=== PATIENT | female | born 1995 | race Caucasian/White ===

== ENCOUNTER 2016-07-11 21:21 | Emergency (ER) | payer OTHER ==
[2016-07-11 21:36] VITALS: BMI 27.1
--- NOTE | 2016-07-11 23:21 | PDOC ---
History of Present Illness - General Chief Complaint: Bleeding from Anus Stated Complaint: BLOOD IN STOOL Time Seen by Provider: 07/11/16 22:49 History Source: Patient Exam Limitations: No Limitations - History of Present Illness Travel History: No Initial Comments: 07/12/16 02:44 21yo Female patient presents to ED c/o lower abd pain with bloody stools. Patient states symptoms began 3pm today. She reports 3 soft loose stools with blood. LNMP: Jun 29. She denies any other complaints at this time. Timing/Duration: reports: getting worse Quality: reports: moderate Abdominal Pain Onset Location: reports: RLQ, LLQ, periumbilical Pain Radiation: reports: no radiation Activities at Onset: reports: none Treatment Prior to Arrive: worse with: analgesics, antacids, cold pack, heat, laxative, enema, other Aggravating Factors: improves with: Defecation Alleviating Factors: worse with: None, Belching, Shallow Breathing, Defecation, Eating, Holding Breath, Passing Gas, Change in Position, Rest, Voiding, Vomiting Past History - Travel Traveled outside of the country in the last 30 days: No Close contact w/someone who was outside of country & ill: No - Past Medical History Allergies/Adverse Reactions: Allergies Allergy/AdvReac Type Severity Reaction Status Date / Time No Known Allergies Allergy Verified 07/11/16 21:32 Home Medications: Ambulatory Orders Docusate Sodium [Colace -] 100 mg PO BID #28 capsule 07/12/16 Famotidine [Pepcid] 40 mg PO DAILY #20 tablet 07/12/16 Oxycodone HCl/Acetaminophen [Percocet 5-325 mg Tablet] 1 tab PO Q6H PRN #12 tablet MDD 4 tab daily 07/12/16 Asthma: Yes (last attack 3-4 years ago) Cancer: No Cardiac Disorders: No Diabetes: No HTN: No Seizures: No Thyroid Disease: No - Immunization History Immunization Up to Date: Yes - Psycho/Social/Smoking Cessation Hx Anxiety: No Suicidal Ideation: No Smoking History: Never smoked Have you smoked in the past 12 months: No Number of Cigarettes Smoked Daily: 0 Information on smoking cessation initiated: No Hx Alcohol Use: No Drug/Substance Use Hx: No Substance Use Type: None Hx Substance Use Treatment: No Abd/GI Specific PMHX - Complaint Specific PMHX Colitis: No Diverticulitis: No Gall Bladder Disease: No GERD: No Hepatitis: No Irritable Bowel Synd (IBS): No Pancreatitis: No GI Ulcer Disease: No Review of Systems - Review of Systems Able to Perform ROS?: Yes Is the patient limited Turkmen proficient: Yes Constitutional: No: Chills, Fever Respiratory: No: Cough, Shortness of Breath Cardiac (ROS): No: Chest Pain ABD/GI: Yes: Rectal Bleeding, Other (Lower abd pain). No: Constipated, Diarrhea , Nausea, Vomiting : No: Burning, Dysuria Musculoskeletal: No: Back Pain Integumentary: No: Rash All Other Systems: Reviewed and Negative *Physical Exam - Vital Signs Last Vital Signs Temp Pulse Resp BP Pulse Ox 98.0 F 69 14 110/56 100 07/11/16 21:33 07/11/16 21:33 07/11/16 21:33 07/11/16 21:33 07/11/16 21:33 - Physical Exam General Appearance: Yes: Nourished, Appropriately Dressed, Mild Distress. No: Apparent Distress Neck: positive: Trachea midline, Supple Respiratory/Chest: positive: Lungs Clear, Normal Breath Sounds Cardiovascular: positive: Regular Rhythm, Regular Rate Gastrointestinal/Abdominal: positive: Tender (+ tenderness to periumbilical and lower abd region.), Soft, Decreased BS Rectal Exam: positive: normal rectal tone, hemorrhoids, other (Heme positive stool) Musculoskeletal: positive: Normal Inspection Extremity: positive: Normal Capillary Refill, Normal Inspection, Normal Range of Motion Integumentary: positive: Normal Color, Dry, Warm Neurologic: positive: control electrician II-XII NML intact, Fully Oriented, Alert, Normal Mood/ Affect, Normal Response, Motor Strength / ED Treatment Course - LABORATORY CBC & Chemistry Diagram: 07/11/16 23:50 07/11/16 23:50 *DC/Admit/Observation/Transfer Diagnosis at time of Disposition: External bleeding hemorrhoids - Discharge Dispostion Disposition: HOME Condition at time of disposition: Stable Admit: No - Prescriptions Prescriptions: Docusate Sodium [Colace -] 100 mg PO BID #28 capsule Famotidine [Pepcid] 40 mg PO DAILY #20 tablet Oxycodone HCl/Acetaminophen [Percocet 5-325 mg Tablet] 1 tab PO Q6H PRN #12 tablet MDD 4 tab daily PRN Reason: Severe Pain - Referrals Referrals: Akua Resendez NP [Primary Care Provider] - Gopal Sierra MD [Staff Physician] - - Patient Instructions Printed Discharge Instructions: Hemorrhoids Additional Instructions: FOLLOW UP WITH DR. SIERRA (GASTROENTEROLOGY) REGARDING TODAYS VISIT. TAKE MEDICATION PRESCRIBED. DO NOT DRIVE, DRINK ALCOHOL, OR OPERATE HEAVY MACHINERY WHILE TAKING PERCOCET. CALL TO SCHEDULE YOUR APPOINTMENT. ALSO, FOLLOW UP WITH YOUR PRIMARY CARE DOCTOR WELL. Print Language: DIVEHI
[2016-07-12 00:18] LABS: BASOPHIL 0.4 % (0-2.0); EOSINOPHIL 5.8 % (0-4.5); MCH 27.1 pg (25.7-33.7); MCHC 32.2 g/dl (32.0-36.0); MEAN CELL VOLUME 84.3 fl (80-96); MEAN PLT VOLUME 9.3 fl (7.5-11.1); NEUTROPHILS 46.2 % (42.8-82.8); PLATELET COUNT 268 K/MM3 (134-434); RDW 13.8 % (11.6-15.6); WHITE BLOOD COUNT 6.9 K/mm3 (4.0-10.0)
[2016-07-12 00:40] LABS: ALBUMIN 3.8 g/dl (3.4-5.0); AMYLASE 74 U/L (25-115); ANION GAP 7 (8-16); BILIRUBIN,TOTAL 0.2 mg/dL (0.2-1.0); CALCIUM 8.9 mg/dL (8.5-10.1); CO2 29 mmol/L (21-32); CREATININE 0.8 mg/dL (0.55-1.02); GLUCOSE,RANDOM 99 mg/dL (74-106); SGOT/AST 21 U/L (15-37); SGPT/ALT 51 U/L (12-78)
[2016-07-12 00:41] LABS: ALK PHOS 125 U/L (45-117)
[2016-07-12] MEDS ORDERED: SODIUM CHLORIDE 1,000 ML IV STA (01:10)
--- NOTE | 2016-07-12 01:22 | PDOC ---
[id number] 100 07/11/16 21:33 07/11/16 21:33 07/11/16 21:33 07/11/16 21:33 07/11/16 21:33 ED Treatment Course - LABORATORY CBC & Chemistry Diagram: 07/11/16 23:50 07/11/16 23:50 - ADDITIONAL ORDERS Additional order review: Laboratory Results 07/12/16 07/11/16 00:25 23:50 Sodium 140 Potassium 4.5 Chloride 104 Carbon Dioxide 29 D Anion Gap 7 L BUN 16 D Creatinine 0.8 Creat Clearance w eGFR > 60 Random Glucose 99 Calcium 8.9 Total Bilirubin 0.2 D AST 21 ALT 51 D Alkaline Phosphatase 125 H Total Protein 8.0 Albumin 3.8 Total Amylase 74 Lipase 235 Stool Occult Blood Positive 07/11/16 23:50 RBC 4.46 MCV 84.3 MCHC 32.2 RDW 13.8 MPV 9.3 Neutrophils % 46.2 Lymphocytes % 34.2 D Monocytes % 13.4 H Eosinophils % 5.8 H Basophils % 0.4 Medical Decision Making - Medical Decision Making 07/12/16 01:21 agree with care from POLICE ACADEMY PROGRAM COORDINATOR [place] *DC/Admit/Observation/Transfer Diagnosis at time of Disposition: External bleeding hemorrhoids - Discharge Dispostion Disposition: HOME - Prescriptions Prescriptions: Docusate Sodium [Colace -] 100 mg PO BID #28 capsule Famotidine [Pepcid] 40 mg PO DAILY #20 tablet Oxycodone HCl/Acetaminophen [Percocet 5-325 mg Tablet] 1 tab PO Q6H PRN #12 tablet MDD 4 tab daily PRN Reason: Severe Pain - Referrals Referrals: Akua Resendez NP [Primary Care Provider] - Gopal Sierra MD [Staff Physician] - - Patient Instructions Printed Discharge Instructions: Hemorrhoids Additional Instructions: FOLLOW UP WITH DR. SIERRA (GASTROENTEROLOGY) REGARDING TODAYS VISIT. TAKE MEDICATION PRESCRIBED. DO NOT DRIVE, DRINK ALCOHOL, OR OPERATE HEAVY MACHINERY WHILE TAKING PERCOCET. CALL TO SCHEDULE YOUR APPOINTMENT. ALSO, FOLLOW UP WITH YOUR PRIMARY CARE DOCTOR WELL. Print Language: PERSIAN
[2016-07-12 07:26] VITALS: BP 105/55; PULSE 66; TEMP 98.1
== END 2016-07-12 07:27 | disposition home or self-care (01) ==
LOC: JER 21:21
PROC: 3E0337Z Introduction of Electrolytic and Water Balance Substance into Peripheral Vein, Percutaneous Approach (ICD-10-PCS; principal; 2016-07-11)
DX: K64.4 Residual hemorrhoidal skin tags (principal); J45.909 Unspecified asthma, uncomplicated
CPT/HCPCS: 36415; 74177-TC; 80053; 82150; 82272; 83690; 84703; 85025; 99281-25

== ENCOUNTER 2020-04-20 21:19 | Emergency (ER) | payer OTHER ==
--- NOTE | 2020-04-20 21:27 | PDOC ---
History of Present Illness - General Stated Complaint: 34 WEEKS/PASSED OUT TWICE Time Seen by Provider: 04/20/20 21:26 History Source: Patient Exam Limitations: No Limitations - History of Present Illness Initial Comments: 04/20/20 21:27 24F , at 35 weeks, previous complicated by preeclampsia presents to ED via EMS after syncopal episode today that occurred at her brothers , where she began to stumble, and was caught by people around her, did not fall and hit her head. She does not recall the event. Her , at bedside, witnessed the event and denied convulsions/jerking motions. She does report some abdominal pressure. She denies DIAZ, vision changes, numbness/tingling/weakness, CP, SOB, nausea, vomiting, dysuria, or LE edema. Allergies: NKDA Tob/Etoh/Rec drugs: neg x3 OBGYN: Dr. Lopez ROS: HEENT: No change in vision. CARDIOVASCULAR: No chest pain or shortness of breath RESPIRATORY: No cough, wheezing, or hemoptysis. GASTROINTESTINAL: No nausea, vomiting, diarrhea or constipation. GENITOURINARY: No dysuria, frequency, or change in urination. NEUROLOGIC: No headache, vertigo, loss of consciousness, or change in strength/sensation. PE: GENERAL: AOx3; no apparent distress EYES: PERRLA, EOMI CARDIO: RRR, normal S1/S2, no murmurs, rubs, or gallops. LUNGS: No distress, speaks full sentences, CTA bilaterally ABDOMEN: Gravid uterus, mild diffuse tenderness on palpation. No guarding, no rebound. EXTREMITIES: no LE pitting edema NEUROLOGICAL: CNII-XII intact. Normal speech. No focal sensorimotor deficits. Cerebellar testing intact. Assessment and Plan 1. vasovagal syncope 2. r/o syncope 2/2 arrythmia Chandler Nugent, PGY1 Emergency Medicine Past History - Medical History Allergies/Adverse Reactions: Allergies Allergy/AdvReac Type Severity Reaction Status Date / Time No Known Allergies Allergy Verified 04/20/20 21:29 Asthma: Yes (last attack 3-4 years ago) Cancer: No Cardiac Disorders: No Diabetes: No HTN: No Seizures: No Thyroid Disease: No - Immunization History Immunization Up to Date: Yes - Psycho-Social/Smoking History Smoking History: Never smoked Have you smoked in the past 12 months: No Number of Cigarettes Smoked Daily: 0 Medical Decision Making - Medical Decision Making 04/20/20 22:57 24F , at 35 weeks, presents after syncopal episode. Neuro exam intact, lungs clear, no LE edema. EKG normal sinus rhythm -> likely vasovagal syncope 2/2 emotional stressor at brothers , unlikely cardiac related. Blood glucose 100. Unlikely preeclampsia, not hypertensive, no vision changes, lungs CTA, no LE edema. -> pt medically cleared to discharge to labor and delivery for FHR monitoring. 04/20/20 23:13 Discussed case with L&D nurse. Will d/c pt from ED, and transfer to L&D. Discharge - Discharge Information Problems reviewed: Yes Clinical Impression/Diagnosis: Vasovagal syncope Condition: Stable - Admission No - Follow up/Referral - Patient Discharge Instructions Patient Printed Discharge Instructions: DI for Syncope in Adults (Fainting) Additional Instructions: You were seen in the emergency department for a syncopal event. The EKG (examines your heart activity) was normal. This was likely a Vaso-vagal syncope, which can be caused by emotional stressors. Please follow up with your primary care physician and OBGYN regarding your visit to the emergency department. If you experience profound lightheadedness/dizziness, vision changes, or shortness of breath please return to the emergency department or call 911. - Post Discharge Activity
[2020-04-20 21:32] VITALS: BP 117/76; PULSE 79; TEMP 99.1; BMI 31.8
--- OUTSIDE RECORDS SUMMARY | 2020-04-20 21:32 | XMS ---
:1995 Author Organization [facility] Support Name Relationship Address Phone UE, UNEMPLOYED Unavailable Unavailable Unavailable WILMER DORADO SPOUSE [address] [facility] [address] [place] [address] UE Unavailable Unavailable Unavailable GLENN LAWRENCE SISTER [address] [phone] [place] [address] LIZAMA, JAELYN Unavailable [address] [place] [address] Re-disclosure Warning The records that you are about to access may contain information from federally- assisted alcohol or drug abuse programs. If such information is present, then the following federally mandated warning applies: This information has been disclosed to you from records protected by federal confidentiality rules (42 CFR part 2). The federal rules prohibit you from making any further disclosure of this information unless further disclosure is expressly permitted by the written consent of the person to whom it pertains or as otherwise permitted by 42 CFR part 2. A general authorization for the release of medical or other information is NOT sufficient for this purpose. The Federal rules restrict any use of the information to criminally investigate or prosecute any alcohol or drug abuse patient.The records that you are about to access may contain highly sensitive health information, the redisclosure of which is protected by Article 27-F of the [facility] Public Health law. If you continue you may haveaccess to information: Regarding HIV / AIDS; Provided by facilities licensed or operated by the [facility] Office of Mental Health; or Provided by the [facility] Office for People With Developmental Disabilities. If such information is present, then the following [facility] mandated warning applies: This information has been disclosed to you from confidential records which are protected by state law. State law prohibits you from making any further disclosure of this information without the specific written consent of the person to whom it pertains, or as otherwise permitted by law. Any unauthorized further disclosure in violation of state law may result in a fine or [place] [facility] sentence or both. A general authorization for the release of medical or other information is NOT sufficient authorization for further disclosure. Insurance Providers Payer name Policy type Policy ID Covered Covered libertarian's Policy P miquel / Coverage libertarian ID relationship to Du Inf ormation type du JOYEC [id number] 600 HEALTH NON CAP Social History Code Duration Value Status Description Data Source(s ) Smoking 08/05/2019 12:00:00 Never Smoker completed Never Smoker e CW3 ([facility])
--- NOTE | 2020-04-20 22:06 | PDOC ---
Attending Attestation - Resident Resident Name: Chandler Nugent - ED Attending Attestation I have performed the following: I have examined & evaluated the patient, The case was reviewed & discussed with the resident, I agree w/resident's findings & plan, Exceptions are as noted - HPI HPI: 04/21/20 00:38 See resident HPI - Physicial Exam PE: 04/21/20 00:38 Agree with documented exam - Medical Decision Making 04/21/20 00:38 Likely vasovagal syncope f/u fsg, ekg dispo per clinical course likely dc to L and D for monitoring Discharge - Discharge Information Problems reviewed: Yes Clinical Impression/Diagnosis: Vasovagal syncope Condition: Stable - Follow up/Referral - Patient Discharge Instructions Patient Printed Discharge Instructions: DI for Syncope in Adults (Fainting) Additional Instructions: You were seen in the emergency department for a syncopal event. The EKG (examines your heart activity) was normal. This was likely a Vaso-vagal syncope, which can be caused by emotional stressors. Please follow up with your primary care physician and OBGYN regarding your visit to the emergency department. If you experience profound lightheadedness/dizziness, vision changes, or shortness of breath please return to the emergency department or call 911. - Post Discharge Activity
[2020-04-21 01:22] LABS: URIC ACID 6.7 mg/dL (2.6-7.2)
[2020-04-21 01:36] LABS: EPI CELLS >36 /uL (0-25.1); HYALINE CASTS 3 /uL (0-3.1); URINE APPEARANCE CLOUDY; URINE BACTERIA 689 /uL (0-1359); URINE BILIRUBIN NEGATIVE (NEGATIVE); URINE COLOR YELLOW; URINE GLUCOSE (UA) NEGATIVE (NEGATIVE); URINE KETONE NEGATIVE (NEGATIVE); URINE LEUK ESTERASE 1+ (NEGATIVE); URINE NITRITE NEGATIVE (NEGATIVE); URINE PROTEIN NEGATIVE (NEGATIVE); URINE RBC 8 /uL (0-23.9); URINE UROBILINOGEN 0.2 mg/dL (0.2-1.0); URINE WBC 28 /uL (0-25.8)
--- NOTE | 2020-04-21 06:52 | PD.OB.PROG ---
Past Medical History - Primary Care Physician PCP:: Lavelle Leach Documenting Provider Type: Attending - Admission Chief Complaint: 35 weeks,RUQ pain History of Present Illness: 24 yo 35 weeks seen in Er after had near syncope episode at her brother , seen in ER ,was cleared , referred to L&D for evaluation, no SOB, no chest marysol ,no dizziness , has mild RUQ pain, hx of fatty liver , has been followed by GI , no headache, no blurred vision, non/v or diarrhia History Source: Patient Limitations to Obtaining History: No Limitations - Nursing Documentation Nursing Documentation Reviewed: Yes - Past Medical History ...: 2 ...Para: 1 - Past Surgical History Past Surgical History: Yes: None - Smoking History Smoking history: Never smoked Have you smoked in the past 12 months: No Aproximately how many cigarettes per day: 0 - Alcohol/Substance Use Hx Alcohol Use: No History of Substance Use: reports: None - Social History Usual Living Arrangement: With Spouse ADL: Independent History of Recent Travel: No Review of Systems - Review of Systems Constitutional: reports: No Symptoms Eyes: reports: No Symptoms HENT: reports: No Symptoms Neck: reports: No Symptoms Cardiovascular: reports: No Symptoms Respiratory: reports: No Symptoms Gastrointestinal: reports: Other (mildRUQ pain) Genitourinary: reports: No Symptoms Breasts: reports: No Symptoms Reported Musculoskeletal: reports: No Symptoms Integumentary: reports: No Symptoms Neurological: reports: No Symptoms Endocrine: reports: No Symptoms Hematology/Lymphatic: reports: No Symptoms Psychiatric: reports: No Symptoms Physical Exam - Obstetrical Vital Signs: Vital Signs Temperature 99.1 F 04/20/20 21:29 Pulse Rate 79 04/20/20 21:29 Respiratory Rate 20 04/20/20 21:29 Blood Pressure 117/76 04/20/20 21:29 O2 Sat by Pulse Oximetry (%) 99 04/20/20 21:29 Eyes: Yes: WNL HENT: Yes: WNL Neck: Yes: WNL Cardiovascular: Yes: WNL - Abdominal Exam/OB Fundal Height: 36 Number of Fetuses: Single Presentation: Vertex Contractions: No Intensity: Unaware Monitor Mode: External Heart Rate Location: [facility] Category: I Accelerations: Non-Uniform Decelerations: None - Vaginal Exam/OB Vaginal Exam Deferred: No Vaginal Bleeding: No Speculum Exam: No Dilatation (cm): 0 Effacement (%): 0 Amniotic Membrane Status: Intact Presentation: Vertex/Position Station: -3 - Physical Exam Musculoskeletal: Yes: WNL Extremities: Yes: WNL Edema: Yes Edema: LLE: Trace, RLE: Trace Deep Tendon Reflex Grade: Normal +2 Psychiatric: Yes: WNL - Labs Lab Results: CBC, BMP 04/21/20 00:35 Problem List - Problems (1) with 35 completed weeks gestation Code(s): Z3A.35 - 35 WEEKS GESTATION OF (2) Fatty liver Code(s): K76.0 - FATTY (CHANGE OF) LIVER, NOT ELSEWHERE CLASSIFIED Assessment/Plan LFT are normal at this time abdominal sono , large fatty liver BP normal, urine no protein, plat. normal plan d/c home. folow up in clinic next week if headache, blurred vison, swelling, decreased FM to return BPP 8/8, nst cat 1
--- NOTE | 2020-04-24 16:13 | EKG ---
Test Reason : Blood Pressure : / mmHG Vent. Rate : 076 BPM Atrial Rate : 076 BPM P-R Int : 142 ms QRS Dur : 078 ms QT Int : 366 ms P-R-T Axes : 032 008 007 degrees QTc Int : 411 ms NORMAL SINUS RHYTHM POSSIBLE LEFT ATRIAL ENLARGEMENT BORDERLINE ECG NO PREVIOUS ECGS AVAILABLE Confirmed by TONIE IZAGUIRRE MD ([id number]) on 04/24/2020 4:12:36 PM Referred By: Confirmed By:TONIE IZAGUIRRE MD
== END 2020-04-21 02:50 | disposition home or self-care (01) ==
LOC: JER 21:19
DX: O26.813 Pregnancy related exhaustion and fatigue, third trimester (principal); Z3A.34 34 weeks gestation of pregnancy
CPT/HCPCS: 36415; 76705-TC; 76819-TC; 81003; 82962; 82977; 83010; 84156; 84450; 84460; 84550; 85032; 85045; 93005; 93010; 99285-25

== ENCOUNTER 2020-05-15 16:33 | Inpatient (IN) | payer OTHER ==
--- OUTSIDE RECORDS SUMMARY | 2020-05-15 16:37 | XMS ---
:1995 Author Organization [facility] Support Name Relationship Address Phone UE, UNEMPLOYED Unavailable Unavailable Unavailable WILMER DORADO [address] [facility] [address] [place] [id number] UE Unavailable Unavailable Unavailable GLENN LAWRENCE SISTER [facility] [address] [place] [address] WILMER DORADO Spouse [address] [facility] [place] [place] [address] GLENN LAWRENCE [address] [place] [address] LIZAMA, JAELYN Unavailable [address] [place] [address] [place] [address] Re-disclosure Warning The records that you are [...] is protected by Article 27-F of the [facility] Public Health law. If you continue you may haveaccess to information: Regarding HIV / AIDS; Provided by facilities licensed or operated by the [facility] Office of Mental Health; or Provided by the [facility] Office for People With Developmental Disabilities. If such information is present, then the following [facility] mandated warning applies: This information has been [...] law may result in a fine or [facility] sentence or both. A general authorization for the release of medical or other information is NOT sufficient authorization for further disclosure. Encounters Encounter Providers Location Date Indications Data Source(s ) (Procedure) [place] [facility] 06/10/2019 eCW3 ([facility] A28 12:00:00 AM [facility] EST - Care) 06/10/2019 12:00:00 AM EST Immunizations Vaccine Date Status Description Data Source(s) New in 2011. IIV4 04/26/2020 09:52:00 completed eC W3 ([facility]) Medications Medication Brand Start Product Dose Route Administrative Pharmacy [facility] Indications Reaction Description Data Name Date Form Instructions Instructions Source(s) DiphenhydrA UNK 04/12/ 1.0 active Diphenhyd Sangeetha eCW3 MINE HCl 2 2019 {appl INE HCl 2 % ( Hansen % 12:00: icati [facility] 00 AM [facility] EDT _need Care) ed} Ursodiol Ursodi 04/12/ active Ursodiol 3 00 eCW3 300 MG Oral ol 300 2020 MG ([facility] n Capsule MG 12:00: [facility] Insurance Providers Payer name Policy type Policy ID Covered Covered republican's Policy P miquel / Coverage republican ID relationship to Du Inf ormation type du [facility] [id number] SP [id number] 600 HEALTH NON CAP [facility] [id number] 600 [employer] PLAN 1&2 Social History Code Duration Value Status Description Data Source(s ) Smoking 05/10/2020 12:00:00 Never Smoker completed Never Smoker e CW3 ([facility]) Smoking 08/05/2019 12:00:00 Never Smoker completed Never Smoker e CW3 ([facility]) Vital Signs ID Date Data Source UNK Name Value Range Interpretation Code Description Data Source(s) Diastolic blood 73 mm[Hg] 73 mm[Hg] eCW3 ([facility]) Systolic blood 111 mm[Hg] 111 mm[Hg] eCW3 ([facility]) Body temperature 97.7 [degF] 97.7 [degF] eCW3 ( [facility]) Heart rate 20 /min 20 /min eCW3 ([facility]) Body mass index 32.21 kg/m2 32.21 kg/m2 eCW3 ([facility] (BMI) [Ratio] [facility]) Body weight 179 [lb_av] 179 [lb_av] eCW3 ([facility]) Body height 62.5 [in_i] 62.5 [in_i] eCW3 ([facility])
[2020-05-15] MEDS ORDERED: AMPICILLIN SODIUM 2 GM VIAL ONE (17:23)
[2020-05-15 17:37] VITALS: BMI 33.8
[2020-05-15] MEDS ORDERED: ELECTROLYTE-148 SOLN 1,000 ML IV SCH (18:45)
[2020-05-15 18:52] LABS: BASO % 0.8 % (0-2.0); EOS % 1.2 % (0-4.5); HEMATOCRIT 37.3 % (32.4-45.2); HEMOGLOBIN 12.3 GM/dL (10.7-15.3); LYMPH % 20.9 % (8-40); MCH 28.9 pg (25.7-33.7); MCHC 32.9 g/dl (32.0-36.0); MEAN CELL VOLUME 87.8 fl (80-96); MEAN PLT VOLUME 10.8 fl (7.5-11.1); MONO % 9.9 % (3.8-10.2); NEUT % 67.2 % (42.8-82.8); PLATELET COUNT 227 K/MM3 (134-434); RBC 4.24 M/mm3 (3.60-5.2); RDW 14.8 % (11.6-15.6); WHITE BLOOD COUNT 12.3 K/mm3 (4.0-10.0)
[2020-05-15 19:03] LABS: INR 0.92 (0.83-1.09); PROTHROMBIN TIME (PATIENT) 11.4 SEC (9.7-13.0)
[2020-05-15 19:06] LABS: ACTIVATED PTT 34.5 SECONDS (25.2-36.5)
--- NOTE | 2020-05-15 19:14 | HP ---
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 Weeks Gestation by Dates: 39.1 ...EDC by Dates: 05/21/20 ...EDC by Sono: 05/26/20 Heme/Onc: No: Anemia, B12 Deficiency, Bleeding Disorder, Cancer, Current Chemotherapy, Current Radiation Therapy, Hemochromatosis, Hypercoaguable State, Myeloproliferative Synd, Sickle Cell Disease, Sickle Cell Trait, Thrombocytopenia, Other Infectious Disease: No: AIDS, C-Diff, Herpes Zoster, HIV, MRSA, STD's, Tuberculosis, VREF, Other Psych: No: Addictions, Anxiety, Bipolar, Depression, Panic, Psychosis, Schizophrenia, Other Musculoskeletal: No: Bursitis, Chronic low back pain, Hemiparesis, Hemiplegia, Osteoarthritis, Paraplegia, Other Rheumatology: No: Fibromyalgia, Gout, Lupus, Rheumatoid Arthritis, Sarcoidosis, Vasculitis, Other ENT: No: Allergic Rhinitis, Sinusitis, Other Endocrine: No: [place]'s Disease, Street's Disease, Diabetes Insipidus, Diabetes Mellitus, Hyperparathyroidism, Hyperthyroidism, Hypothyroidism, Osteopenia, SIADH, Other Dermatology: No: Basal Cell, Cellulitis, Eczema, Melanoma, Psoriasis, Squamous Cell, Other - Past Surgical History Past Surgical History: Yes: None Hx Myomectomy: No Hx Transabdominal Cerclage: No - Smoking History Smoking history: Never smoked Have you smoked in the past 12 months: No Aproximately how many cigarettes per day: 0 - Alcohol/Substance Use Hx Alcohol Use: No History of Substance Use: reports: None - Social History ADL: Independent History of Recent Travel: No Home Medications - Allergies Allergies/Adverse Reactions: Allergies Allergy/AdvReac Type Severity Reaction Status Date / Time No Known Allergies Allergy Verified 05/03/20 17:16 - Home Medications Home Medications: Ambulatory Orders Pnv No.95/Ferrous Fum/Folic AC [ Caplet] 1 tab PO DAILY 05/03/20 Ursodiol [Actigal -] 1 tab PO DAILY 05/15/20 Family Medical History Family History: Unremarkable Review of Systems Findings/Remarks: Painful contractions - Review of Systems Constitutional: reports: No Symptoms Eyes: reports: No Symptoms HENT: reports: No Symptoms Neck: reports: No Symptoms Cardiovascular: reports: No Symptoms Respiratory: reports: No Symptoms Gastrointestinal: reports: No Symptoms Genitourinary: reports: No Symptoms Breasts: reports: No Symptoms Reported Musculoskeletal: reports: No Symptoms Integumentary: reports: No Symptoms Neurological: reports: No Symptoms Endocrine: reports: No Symptoms Hematology/Lymphatic: reports: No Symptoms Psychiatric: reports: No Symptoms Physical Exam - Maternity Vital Signs: Vital Signs Temperature 98.1 F 05/15/20 18:00 Pulse Rate 71 05/15/20 18:00 Respiratory Rate 18 05/15/20 18:00 Blood Pressure 133/75 05/15/20 18:00 O2 Sat by Pulse Oximetry (%) 100 05/15/20 18:00 Constitutional: Yes: Well Nourished HENT: Yes: Atraumatic Neck: Yes: Supple Cardiovascular: Yes: Pulse Irregular - Abdominal Exam/OB Number of Fetuses: Single Presentation: Vertex Contractions: Yes Regularity: Regular Intensity: Mod/Strong Monitor Mode: External Heart Rate (range): 125 Category: II Accelerations: None Decelerations: Variable - Vaginal Exam/OB Vaginal Bleeding: No Speculum Exam: No Dilatation (cm): 8 Effacement (%): 70 Amniotic Membrane Status: Ruptured Nitrazine Test: Positive Presentation: Vertex/Position Station: -3 (asynclitic and internal digital rotation attempted) - Physical Exam Musculoskeletal: Yes: WNL Extremities: Yes: WNL Edema: Yes Edema: LLE: Trace, RLE: Trace Integumentary: Yes: WNL Deep Tendon Reflex Grade: Normal +2 ...Motor Strength: WNL Psychiatric: Yes: Alert, Oriented - Labs Lab Results: CBC, BMP 05/15/20 18:10 Imaging - Results Ultrasound: Report Reviewed Assessment/Plan 25 y/o @ 39.2wks, NAFLD and suspected cholestasis of , S/P SROM at 3 pm, in active labor, FHT cat II due to variables, bedside sono revealed OP position and nuchal cord. Patient counseled at bedsided and all questions answered. Epidural offered and declined -Admit and informed written consent -Consider amnio infusion -Continuous monitoring
[2020-05-15] MEDS ORDERED: OXYTOCIN 20 UNITS in 0.9% NS 20 UNIT/1,000 ML INFUS.BAG IV ONE (19:23)
[2020-05-15 19:27] LABS: POTASSIUM 4.5 mmol/L (3.5-5.1)
[2020-05-15 19:30] LABS: CALCIUM 9.4 mg/dL (8.5-10.1)
[2020-05-15 19:31] LABS: ALBUMIN 2.8 g/dl (3.4-5.0); BLOOD UREA NITROGEN 12.3 mg/dL (7-18)
[2020-05-15 19:34] LABS: CREATININE 0.6 mg/dL (0.55-1.3)
[2020-05-15 19:35] LABS: BILIRUBIN,TOTAL 0.2 mg/dL (0.2-1)
[2020-05-15 19:36] LABS: TOT PROT 7.3 g/dl (6.4-8.2)
[2020-05-15] MEDS ORDERED: BENZOCAINE 28 GM HEMORRHOIDAL OINTMENT TP PRN (19:40)
[2020-05-15] MEDS ORDERED: METHYLERGONOVINE MALEATE 0.2 MG/1 ML AMP IM ONE (19:40)
[2020-05-15] MEDS ORDERED: BISACODYL 10 MG SUPP.RECT RC PRN (19:40)
[2020-05-15] MEDS ORDERED: BENZOCAINE 20% 57 GM BOTTLE TP PRN (19:40)
[2020-05-15] MEDS ORDERED: WITCH HAZEL 50% (TUCKS) 40 PAD/JAR PAD TP PRN (19:40)
--- NOTE | 2020-05-15 19:48 | PN ---
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 Loose nuchal cord x 1 removed and compound left hand. Shoulders delivered w/o difficulty followed by rest of the body. Terminal meconium noted. Umbilical cord clamped after delay and samples for gases and blood obtained. Placenta delivered spontaneously and intact with 3 VC. Exam revealed mild atony and no lacerations. Fundal massage and IM methergine administered. Fundus is firm and excellent hemostasis. Sponge/instrument count correct x 2 and confirmed by nurse.
[2020-05-15] MEDS ORDERED: IBUPROFEN 600 MG TABLET (FP) PO PRN (19:59)
[2020-05-15] MEDS ORDERED: OXYTOCIN 20 UNITS in 0.9% NS 20 UNIT/1,000 ML INFUS.BAG IV SCH (20:00)
[2020-05-15 20:31] LABS: CORD BASE EXCESS -4.8 mmol/L (0-2); CORD HCO3 20.1 mmHg (20-29); CORD PCO2 37.4 mmHg (30-78); CORD pH 7.348 (7.14-7.44)
[2020-05-15] MEDS: ACETAMINOPHEN 325 MG TABLET (FP) PO PRN (21:33)
[2020-05-15] MEDS: IBUPROFEN 600 MG TABLET (FP) PO PRN (21:34)
[2020-05-16] MEDS: METHYLERGONOVINE MALEATE 0.2 MG TABLET (FP) PO SCH ×5 (00:59→16:05)
--- NOTE | 2020-05-16 06:40 | PN ---
Post Progress Note - Subjective Subjective: Ambulating, tolerating Po, breast feeding, lochia decreased, voiding Type of Delivery: Vital Signs: Vital Signs Temperature 98.0 F 05/16/20 06:00 Pulse Rate 80 05/16/20 06:00 Respiratory Rate 18 05/16/20 06:00 Blood Pressure 111/63 05/16/20 06:00 O2 Sat by Pulse Oximetry (%) 99 05/16/20 06:00 Breast Exam: Yes: Other Uterus: Yes: Fundus Firm Abdomen/GI: Yes: Abdomen soft Lochia, amount: Moderate Extremities: Yes: Calves non-tender Perineum: Yes: Intact Activity: Ambulating - Labs Labs: CBC WBC 12.3 K/mm3 (4.0-10.0) H 05/15/20 18:10 RBC 4.24 M/mm3 (3.60-5.2) 05/15/20 18:10 Hgb 12.3 GM/dL (10.7-15.3) 05/15/20 18:10 Hct 37.3 % (32.4-45.2) 05/15/20 18:10 MCV 87.8 fl (80-96) 05/15/20 18:10 MCH 28.9 pg (25.7-33.7) 05/15/20 18:10 MCHC 32.9 g/dl (32.0-36.0) 05/15/20 18:10 RDW 14.8 % (11.6-15.6) 05/15/20 18:10 Plt Count 227 K/MM3 (134-434) 05/15/20 18:10 MPV 10.8 fl (7.5-11.1) 05/15/20 18:10 Absolute Neuts (auto) 8.3 K/mm3 (1.5-8.0) H 05/15/20 18:10 Neutrophils % 67.2 % (42.8-82.8) 05/15/20 18:10 Lymphocytes % 20.9 % (8-40) 05/15/20 18:10 Monocytes % 9.9 % (3.8-10.2) 05/15/20 18:10 Eosinophils % 1.2 % (0-4.5) 05/15/20 18:10 Basophils % 0.8 % (0-2.0) 05/15/20 18:10 Nucleated RBC % 0 % (0-0) 05/15/20 18:10 Assessment/Plan PPD # 1 in stable condition and baby at bedside -Continue PP care -Anticipate D/C home tomorrow
[2020-05-16 08:47] LABS: POC NITRAZINE POS
[2020-05-16 09:33] LABS: BASO % 0.6 % (0-2.0); EOS % 1.2 % (0-4.5); HEMATOCRIT 30.3 % (32.4-45.2); HEMOGLOBIN 9.8 GM/dL (10.7-15.3); MCHC 32.5 g/dl (32.0-36.0); MEAN CELL VOLUME 89.2 fl (80-96); MEAN PLT VOLUME 10.8 fl (7.5-11.1); MONO % 8.8 % (3.8-10.2); NEUT % 72.4 % (42.8-82.8); PLATELET COUNT 180 K/MM3 (134-434); RBC 3.39 M/mm3 (3.60-5.2); RDW 14.8 % (11.6-15.6); WHITE BLOOD COUNT 13.1 K/mm3 (4.0-10.0)
[2020-05-16] MEDS ORDERED: FLU VACCINE (FLULAVAL) PF 60 MCG/0.5 ML SYRINGE 2020-2021 IM ONE (10:00)
[2020-05-16] MEDS: IBUPROFEN 600 MG TABLET (FP) PO PRN (20:55)
[2020-05-16] MEDS: ACETAMINOPHEN 325 MG TABLET (FP) PO PRN (20:56)
[2020-05-16] MEDS ORDERED: SENNOSIDES/DOCUSATE COMBO (SENNA PLUS) TABLET (UD) PO PRN (22:00)
--- NOTE | 2020-05-17 07:42 | DS ---
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 BF) Musculoskeletal: Yes: WNL Extremities: Yes: WNL. No: Calf Tenderness Edema: LLE: 1+, RLE: 1+ Neurological: Yes: WNL, Alert, Oriented ...Motor Strength: WNL Psychiatric: Yes: WNL Labs: CBC, BMP 05/16/20 08:04 05/15/20 18:10 Delivery - Delivery Type of Anesthesia: None Episiotomy/Laceration: None EBL (cc): 400 Delivery, Single - Stages of Labor Date 1st Stage Initiatied: 05/15/20 Time 1st Stage Initiated: 15:00 Date 2nd Stage Initiated: 05/15/20 Time 2nd Stage Initiated: 19:00 Date of Delivery: 05/15/20 Time of Delivery: 19:19 Time Placenta Delivered: 19:26 Placenta: Yes: Spontaneous - Condition of Sales Apprentice/Safety Companion Present: No Gender: Male Weight: 5 lb 11 oz Position: Left, OA Total Hours ROM (Hrs/Mins): 4h 19m - 1 Minute Total Score: 9 5 Minutes Total Score: 9 - Russell Feeding Plan Initial Plan: Elected not to breastfeed exclusively throughout hospitalization Remarks - Remarks Remarks: pp course uneventful anemia counselled, continue po iron & pnv , hogh iron diet discharge today rtc for pp f/u Discharge Summary Problems reviewed: Yes Reason For Visit: INDUCTION OF LABOR Current Active Problems Normal spontaneous vaginal delivery (Acute) with 39 completed weeks gestation (Acute) Condition: Stable - Instructions Diet, Activity, Other Instructions: Return to regular diet as tolerated, follow up at health center in 3-4 weeks for visit. Call office with any questions Referrals: Lotus Lopez MD [Staff Physician] - Tone Angeles MD [Staff Physician] - Disposition: HOME - Home Medications Comprehensive Discharge Medication List: Ambulatory Orders Pnv No.95/Ferrous Fum/Folic AC [ Caplet] 1 tab PO DAILY 05/03/20 Ursodiol [Actigal -] 1 tab PO DAILY 05/15/20 Acetaminophen [Tylenol] 325 mg PO Q6H PRN #30 capsule MDD 5 05/16/20 Ibuprofen 600 mg PO Q6H PRN #30 tablet 05/16/20
[2020-05-17 10:55] VITALS: BP 120/79; PULSE 80; TEMP 98
== END 2020-05-17 11:55 | disposition home or self-care (01) | DRG 560 ==
LOC: JLDR 16:33 → J3W 21:30
PROVIDERS: ADMIT Student in an Organized Health Care Education/Training Program; ATTEND Student in an Organized Health Care Education/Training Program
PROC: 10E0XZZ Delivery of Products of Conception, External Approach (ICD-10-PCS; principal; 2020-05-15)
DX: O42.02 Full-term premature rupture of membranes, onset of labor within 24 hours of rupture (principal); O26.62 Liver and biliary tract disorders in childbirth; K83.1 Obstruction of bile duct; O76 Abnormality in fetal heart rate and rhythm complicating labor and delivery; O99.824 Streptococcus B carrier state complicating childbirth; O90.81 Anemia of the puerperium; D64.89 Other specified anemias; O69.81X0 Labor and delivery complicated by cord around neck, without compression, not applicable or unspecified; B95.1 Streptococcus, group B, as the cause of diseases classified elsewhere; O32.6XX0 Maternal care for compound presentation, not applicable or unspecified; O99.214 Obesity complicating childbirth; E66.9 Obesity, unspecified; K76.0 Fatty (change of) liver, not elsewhere classified; K64.9 Unspecified hemorrhoids; Z87.09 Personal history of other diseases of the respiratory system; Z37.0 Single live birth; Z3A.39 39 weeks gestation of pregnancy
CPT/HCPCS: 36415; 36600; 59409; 80053; 82803; 83986-QW; 85025; 85610; 85730; 86780; 86850; 86900; 86901

== ENCOUNTER 2022-10-11 04:21 | Day surgery (SDC) | payer OTHER ==
[2022-10-04 11:45] VITALS: BMI 30.4
[2022-10-11] MEDS ORDERED: PROPOFOL 20 ML ONE (11:29)
[2022-10-11] MEDS ORDERED: LIDOCAINE HCL/PF 2% SDV 5ML VIAL ONE (11:29)
[2022-10-11] MEDS ORDERED: MIDAZOLAM HCL 2 MG/2 ML SINGLE DOSE VIAL ONE (11:30)
[2022-10-11] MEDS ORDERED: oxyCODONE HCL 5 MG TABLET PO PRN (12:28)
[2022-10-11] MEDS ORDERED: ONDANSETRON 4 MG/2 ML VIAL IVPUSH PRN (12:28)
[2022-10-11] MEDS ORDERED: KETOROLAC TROMETHAMINE 30 MG/1 ML VIAL IM ONE (12:29)
[2022-10-11] MEDS ORDERED: LACTATED RINGERS SOLUTION 1,000 ML IV SCH (12:30)
[2022-10-11] MEDS ORDERED: FENTANYL CITRATE/PF 50 MCG/ML VIAL IVPUSH PRN (12:38)
[2022-10-11] MEDS ORDERED: KETOROLAC TROMETHAMINE 30 MG/1 ML VIAL ONE (13:45)
[2022-10-11 16:09] VITALS: BP 116/66; PULSE 63; RESP 20; TEMP 97.8
== END 2022-10-11 15:53 | disposition home or self-care (01) ==
LOC: JASU-SURG 04:21
PROVIDERS: ATTEND Obstetrics & Gynecology
PROC: 0UB98ZZ Excision of Uterus, Via Natural or Artificial Opening Endoscopic (ICD-10-PCS; principal; 2022-10-11 12:00)
DX: T83.89XA Other specified complication of genitourinary prosthetic devices, implants and grafts, initial encounter (principal); N84.0 Polyp of corpus uteri
CPT/HCPCS: 88300-TC; 88305-TC; 94760

== ENCOUNTER 2022-11-19 12:57 | Emergency (ER) | payer OTHER ==
[2022-11-19 13:08] VITALS: RESP 18; BMI 29.8
[2022-11-19 14:41] LABS: BASO % 0.7 % (0-2.0); EOS % 2.9 % (0-4.5); HEMATOCRIT 37.2 % (32.4-45.2); HEMOGLOBIN 12.7 GM/dL (10.7-15.3); LYMPH % 23.1 % (8-40); MCH 29.5 pg (25.7-33.7); MCHC 34.2 g/dl (32.0-36.0); MEAN CELL VOLUME 86.2 fl (80-96); MEAN PLT VOLUME 9.7 fl (7.5-11.1); NEUT % 63.3 % (42.8-82.8); PLATELET COUNT 272 10^3/uL (134-434); RBC 4.32 M/mm3 (3.60-5.2); RDW 13.5 % (11.6-15.6); WHITE BLOOD COUNT 6.7 K/mm3 (4.0-10.0)
[2022-11-19 14:45] LABS: INR 1.14 (0.83-1.09); PROTHROMBIN TIME (PATIENT) 13.2 SEC (9.7-13.0)
[2022-11-19 14:48] LABS: ACTIVATED PTT 37.8 SECONDS (25.2-36.5)
[2022-11-19 14:51] LABS: URINE APPEARANCE TURBID; URINE BILIRUBIN NEGATIVE (NEGATIVE); URINE COLOR RED; URINE GLUCOSE (UA) NEGATIVE (NEGATIVE); URINE KETONE NEGATIVE (NEGATIVE)
[2022-11-19 14:52] LABS: EPI CELLS FEW /uL (0-25.1); URINE LEUK ESTERASE NEGATIVE (NEGATIVE); URINE NITRITE NEGATIVE (NEGATIVE); URINE PROTEIN 1+ (NEGATIVE); URINE RBC 100-200 /uL (0-23.9); URINE UROBILINOGEN 0.2 mg/dL (0.2-1.0)
[2022-11-19 15:02] LABS: POTASSIUM 3.7 mmol/L (3.5-5.1)
[2022-11-19 15:03] LABS: CALCIUM 9.2 mg/dL (8.5-10.1)
[2022-11-19 15:04] LABS: BLOOD UREA NITROGEN 12.3 mg/dL (7-18)
[2022-11-19 15:07] LABS: CREATININE 0.6 mg/dL (0.55-1.3)
[2022-11-19 15:09] LABS: BILIRUBIN,TOTAL 0.2 mg/dL (0.2-1); TOT PROT 8.4 g/dl (6.4-8.2)
[2022-11-19 17:29] VITALS: BP 115/62; PULSE 65; TEMP 98
== END 2022-11-19 17:00 | disposition home or self-care (01) ==
LOC: JER 12:57
DX: N92.1 Excessive and frequent menstruation with irregular cycle (principal); N83.291 Other ovarian cyst, right side
CPT/HCPCS: 36415; 76830-TC; 80053; 81003; 84702; 84703; 85025; 85610; 85730; 86850; 86900; 86901; 99284-25

== ENCOUNTER 2023-04-24 15:14 | Emergency (ER) | payer OTHER ==
[2023-04-24 15:28] VITALS: BP 112/58; PULSE 84; RESP 16; TEMP 98.8; BMI 32.4
[2023-04-24 17:04] LABS: BASO % 0.6 % (0-2.0); EOS % 2.9 % (0-4.5); HEMATOCRIT 34.5 % (32.4-45.2); HEMOGLOBIN 11.8 GM/dL (10.7-15.3); MCH 29.4 pg (25.7-33.7); MCHC 34.3 g/dl (32.0-36.0); MEAN CELL VOLUME 85.5 fl (80-96); MEAN PLT VOLUME 8.9 fl (7.5-11.1); MONO % 8.6 % (3.8-10.2); NEUT % 68.9 % (42.8-82.8); PLATELET COUNT 285 10^3/uL (134-434); RBC 4.03 M/mm3 (3.60-5.2); RDW 13.3 % (11.6-15.6); WHITE BLOOD COUNT 8.9 K/mm3 (4.0-10.0)
[2023-04-24 17:13] LABS: INR 1.09 (0.83-1.09); PROTHROMBIN TIME (PATIENT) 12.6 SEC (9.7-13.0)
[2023-04-24 17:16] LABS: ACTIVATED PTT 34.1 SECONDS (25.2-36.5)
[2023-04-24 17:16] LABS: HCG,QUALITATIVE URINE Positive
[2023-04-24 17:21] LABS: EPI CELLS >36 /uL (0-25.1); HYALINE CASTS 3 /uL (0-3.1); URINE APPEARANCE CLOUDY; URINE BILIRUBIN NEGATIVE (NEGATIVE); URINE COLOR YELLOW; URINE GLUCOSE (UA) NEGATIVE (NEGATIVE); URINE KETONE TRACE (NEGATIVE); URINE LEUK ESTERASE 1+ (NEGATIVE); URINE NITRITE NEGATIVE (NEGATIVE); URINE PROTEIN NEGATIVE (NEGATIVE); URINE WBC 48 /uL (0-25.8)
[2023-04-24 17:38] LABS: BLOOD UREA NITROGEN 7.4 mg/dL (7-18)
[2023-04-24 17:39] LABS: ALBUMIN 3.4 g/dl (3.4-5.0)
[2023-04-24 17:41] LABS: CREATININE 0.6 mg/dL (0.55-1.3)
[2023-04-24 17:43] LABS: BILIRUBIN,TOTAL 0.2 mg/dL (0.2-1); TOT PROT 7.6 g/dl (6.4-8.2)
[2023-04-24 17:48] LABS: URINE BACTERIA 783 /uL (0-1359); URINE RBC 24 /uL (0-23.9)
[2023-04-24] MEDS ORDERED: CEPHALEXIN MONOHYDRATE 500 MG CAPSULE (UD) PO ONE (18:03)
[2023-04-24] MEDS ORDERED: CEPHALEXIN MONOHYDRATE 500 MG CAPSULE (UD) ONE (18:08)
== END 2023-04-24 18:59 | disposition home or self-care (01) ==
LOC: JER 15:14
DX: O26.891 Other specified pregnancy related conditions, first trimester (principal); R10.30 Lower abdominal pain, unspecified; O34.81 Maternal care for other abnormalities of pelvic organs, first trimester; N83.201 Unspecified ovarian cyst, right side; O23.41 Unspecified infection of urinary tract in pregnancy, first trimester; Z3A.12 12 weeks gestation of pregnancy
CPT/HCPCS: 36415; 76817-TC; 80053; 81003; 84702; 84703; 85025; 85610; 85730; 86850; 86900; 86901; 87086; 99284-25

== ENCOUNTER 2023-11-05 09:25 | Inpatient (IN) | payer OTHER ==
[2023-11-05] MEDS: LACTATED RINGERS SOLUTION 1,000 ML/1,000 ML INFUS.BAG IV SCH (09:55)
[2023-11-05] MEDS ORDERED: AMPICILLIN SODIUM 2 GM VIAL ONE (10:03)
[2023-11-05] MEDS: AMPICILLIN - 2 GM in SODIUM CHLORIDE 100 ML IVPB ONE (10:05)
[2023-11-05] MEDS ORDERED: AMPICILLIN - 2 GM in SODIUM CHLORIDE 100 ML IVPB ONE (10:21)
[2023-11-05 10:25] VITALS: BMI 36.3
[2023-11-05 11:56] LABS: BASO % 0.4 % (0-2.0); EOS % 0.8 % (0-4.5); HEMATOCRIT 36.6 % (32.4-45.2); HEMOGLOBIN 12.2 GM/dL (10.7-15.3); LYMPH % 13.7 % (8-40); MCH 26.8 pg (25.7-33.7); MCHC 33.2 g/dl (32.0-36.0); MEAN CELL VOLUME 80.6 fl (80-96); MEAN PLT VOLUME 9.5 fl (7.5-11.1); MONO % 8.3 % (3.8-10.2); NEUT % 76.8 % (42.8-82.8); PLATELET COUNT 269 10^3/uL (134-434); RBC 4.54 M/mm3 (3.60-5.2); RDW 14.5 % (11.6-15.6); WHITE BLOOD COUNT 12.5 K/mm3 (4.0-10.0)
[2023-11-05 12:02] LABS: INR 1.04 (0.83-1.09); PROTHROMBIN TIME (PATIENT) 11.7 SEC (9.7-13.0)
[2023-11-05 12:04] LABS: ACTIVATED PTT 32.4 SECONDS (25.2-36.5)
[2023-11-05 12:09] LABS: POTASSIUM 4.2 mmol/L (3.5-5.1)
[2023-11-05 12:11] LABS: ALBUMIN 2.6 g/dl (3.4-5.0); CALCIUM 9.3 mg/dL (8.5-10.1)
[2023-11-05 12:12] LABS: BLOOD UREA NITROGEN 7.5 mg/dL (7-18)
[2023-11-05 12:14] LABS: CREATININE 0.5 mg/dL (0.55-1.3)
[2023-11-05 12:16] LABS: BILIRUBIN,TOTAL 0.4 mg/dL (0.2-1)
[2023-11-05 13:02] LABS: CORD BASE EXCESS -9.9 mmol/L (0-2); CORD HCO3 18.4 mmHg (20-29); CORD PCO2 48.7 mmHg (30-78); CORD pH 7.196 (7.14-7.44)
[2023-11-05] MEDS ORDERED: ONDANSETRON 4 MG/2 ML VIAL IVPUSH PRN (13:10)
[2023-11-05 13:14] LABS: CORD BASE EXCESS -9.2 mmol/L (0-2); CORD HCO3 20.9 mmHg (20-29); CORD PCO2 61.2 mmHg (30-78); CORD pH 7.152 (7.14-7.44)
[2023-11-05] MEDS ORDERED: METHYLERGONOVINE MALEATE 0.2 MG/1 ML AMP IM PRN (13:14)
[2023-11-05 13:33] LABS: HIV INTERPRETATION NEGATIVE (NEGATIVE)
[2023-11-05] MEDS ORDERED: KETOROLAC TROMETHAMINE 30 MG/1 ML VIAL ONE (13:36)
[2023-11-05] MEDS: KETOROLAC TROMETHAMINE 30 MG/1 ML VIAL IVPUSH ONE (13:43)
[2023-11-05] MEDS ORDERED: AMPICILLIN - 1 GM in SODIUM CHLORIDE 100 ML IVPB SCH (14:00)
[2023-11-05] MEDS ORDERED: HYDROmorphone *PCA* 10MG/50ML DISP.SYRIN ONE (14:35)
[2023-11-05] MEDS: HYDROmorphone *PCA* 10MG/50ML DISP.SYRIN PCA SCH (14:49)
[2023-11-05] MEDS: ACETAMINOPHEN 1000 MG/100 ML BAG IVPB ONE (15:38)
[2023-11-05] MEDS: OXYTOCIN 20 UNITS in 0.9% NS 20 UNIT/1,000 ML INFUS.BAG IV SCH (15:38)
[2023-11-05] MEDS: CEFAZOLIN SODIUM 2 GM in DEXTROSE 5%-WATER 100 ML IVPB SCH (17:51)
[2023-11-06] MEDS: SIMETHICONE 80 MG TAB.CHEW (FP) PO PRN (05:59)
[2023-11-06 07:57] LABS: BASO % 0.5 % (0-2.0); EOS % 0.9 % (0-4.5); HEMATOCRIT 25.9 % (32.4-45.2); HEMOGLOBIN 8.5 GM/dL (10.7-15.3); LYMPH % 17.3 % (8-40); MCH 26.9 pg (25.7-33.7); MCHC 32.7 g/dl (32.0-36.0); MEAN CELL VOLUME 82.3 fl (80-96); MEAN PLT VOLUME 9.3 fl (7.5-11.1); MONO % 9.1 % (3.8-10.2); NEUT % 72.2 % (42.8-82.8); PLATELET COUNT 232 10^3/uL (134-434); RBC 3.15 M/mm3 (3.60-5.2); RDW 14.5 % (11.6-15.6); WHITE BLOOD COUNT 11.8 K/mm3 (4.0-10.0)
[2023-11-06] MEDS: IBUPROFEN 800 MG/8 ML IJ IVPB PRN (09:34)
[2023-11-06] MEDS: ACETAMINOPHEN 1000 MG/100 ML BAG IVPB PRN (12:22)
[2023-11-06] MEDS ORDERED: BISACODYL 10 MG SUPP.RECT RC PRN (13:15)
[2023-11-06] MEDS: IBUPROFEN 600 MG TABLET (FP) PO PRN (21:06)
[2023-11-06] MEDS ORDERED: oxyCODONE HCL 5 MG TABLET PO PRN ×2 (21:50→21:51)
[2023-11-07] MEDS: IBUPROFEN 600 MG TABLET (FP) PO PRN (05:18)
[2023-11-07] MEDS: ACETAMINOPHEN 325 MG TABLET (FP) PO PRN (11:04)
[2023-11-07 20:53] VITALS: RESP 18
[2023-11-07] MEDS: SENNOSIDES/DOCUSATE COMBO (SENNA PLUS) TABLET (UD) PO PRN (20:56)
[2023-11-08 07:01] LABS: BASO % 0.5 % (0-2.0); EOS % 3.2 % (0-4.5); HEMATOCRIT 25.7 % (32.4-45.2); HEMOGLOBIN 8.3 GM/dL (10.7-15.3); LYMPH % 11.1 % (8-40); MCH 26.6 pg (25.7-33.7); MCHC 32.2 g/dl (32.0-36.0); MEAN CELL VOLUME 82.3 fl (80-96); MEAN PLT VOLUME 8.9 fl (7.5-11.1); MONO % 5.6 % (3.8-10.2); NEUT % 79.6 % (42.8-82.8); PLATELET COUNT 273 10^3/uL (134-434); RBC 3.12 M/mm3 (3.60-5.2); RDW 14.7 % (11.6-15.6); WHITE BLOOD COUNT 11.8 K/mm3 (4.0-10.0)
[2023-11-08 09:01] VITALS: BP 124/75; PULSE 85; TEMP 98.3
== END 2023-11-08 13:00 | disposition home or self-care (01) | DRG 540 ==
LOC: JLDR 09:25 → J3W 15:15
PROVIDERS: ADMIT Obstetrics & Gynecology; ATTEND Obstetrics & Gynecology
PROC: 10D00Z1 Extraction of Products of Conception, Low, Open Approach (ICD-10-PCS; principal; 2023-11-05)
DX: O69.0XX0 Labor and delivery complicated by prolapse of cord, not applicable or unspecified (principal); O99.824 Streptococcus B carrier state complicating childbirth; Z3A.39 39 weeks gestation of pregnancy; Z37.0 Single live birth
CPT/HCPCS: 36415; 36600; 80053; 82803; 85025; 85610; 85730; 86780; 86850; 86900; 86901; 87389; 88307-TC; J0131

== ENCOUNTER 2023-12-23 22:20 | Emergency (ER) | payer OTHER ==
[2023-12-23 22:41] VITALS: TEMP 97.8; BMI 32.5
[2023-12-24] MEDS ORDERED: METOCLOPRAMIDE HCL INJECTION 10 MG/2 ML VIAL ONE (00:07)
[2023-12-24] MEDS ORDERED: ACETAMINOPHEN INJECTION 100 ML IVPB ONE (00:08)
[2023-12-24 00:15] LABS: BASO % 0.9 % (0-2.0); HEMATOCRIT 37.8 % (32.4-45.2); HEMOGLOBIN 12.1 GM/dL (10.7-15.3); MCH 26.3 pg (25.7-33.7); MCHC 31.9 g/dl (32.0-36.0); MEAN CELL VOLUME 82.2 fl (80-96); MEAN PLT VOLUME 9.1 fl (7.5-11.1); MONO % 10.6 % (3.8-10.2); NEUT % 49.5 % (42.8-82.8); PLATELET COUNT 293 10^3/uL (134-434); RDW 15.9 % (11.6-15.6); WHITE BLOOD COUNT 8.5 K/mm3 (4.0-10.0)
[2023-12-24] MEDS: SODIUM CHLORIDE 0.9% 500 ML INFUS.BAG IV ONE (00:20)
[2023-12-24] MEDS: ACETAMINOPHEN 1000 MG/100 ML BAG IVPB ONE (00:21)
[2023-12-24] MEDS: METOCLOPRAMIDE HCL INJECTION 10 MG/2 ML VIAL IVPUSH ONE (00:21)
[2023-12-24 00:23] LABS: INR 1.05 (0.83-1.09); PROTHROMBIN TIME (PATIENT) 12.1 SEC (9.7-13.0)
[2023-12-24 00:26] LABS: ACTIVATED PTT 35.9 SECONDS (25.2-36.5)
[2023-12-24 00:27] LABS: PH,URINE 6.5 (5.0-8.0); URINE BILIRUBIN NEGATIVE (NEGATIVE); URINE COLOR YELLOW; URINE GLUCOSE (UA) NEGATIVE (NEGATIVE); URINE KETONE NEGATIVE (NEGATIVE); URINE LEUK ESTERASE NEGATIVE (NEGATIVE); URINE NITRITE NEGATIVE (NEGATIVE); URINE PROTEIN NEGATIVE (NEGATIVE); URINE UROBILINOGEN 0.2 mg/dL (0.2-1.0)
[2023-12-24 00:36] LABS: POTASSIUM 4.2 mmol/L (3.5-5.1)
[2023-12-24 00:37] LABS: CALCIUM 9.7 mg/dL (8.5-10.1)
[2023-12-24 00:38] LABS: ALBUMIN 4.1 g/dl (3.4-5.0); BLOOD UREA NITROGEN 11.3 mg/dL (7-18)
[2023-12-24 00:42] LABS: CREATININE 0.7 mg/dL (0.55-1.3)
[2023-12-24 00:43] LABS: BILIRUBIN,TOTAL 0.2 mg/dL (0.2-1); TOT PROT 8.6 g/dl (6.4-8.2)
[2023-12-24] MEDS ORDERED: KETOROLAC TROMETHAMINE 15 MG/ML VIAL ONE (01:20)
[2023-12-24] MEDS: KETOROLAC TROMETHAMINE 15 MG/ML VIAL IVPUSH ONE (01:32)
[2023-12-24 01:33] VITALS: BP 108/64; PULSE 54; RESP 16
[2023-12-25 09:55] LABS: URINE APPEARANCE CLEAR
== END 2023-12-24 01:41 | disposition home or self-care (01) ==
LOC: JER 22:20
PROC: 3E033NZ Introduction of Analgesics, Hypnotics, Sedatives into Peripheral Vein, Percutaneous Approach (ICD-10-PCS; principal; 2023-12-24)
PROC: 3E0333Z Introduction of Anti-inflammatory into Peripheral Vein, Percutaneous Approach (ICD-10-PCS; 2023-12-24)
PROC: 3E033GC Introduction of Other Therapeutic Substance into Peripheral Vein, Percutaneous Approach (ICD-10-PCS; 2023-12-24)
DX: R42 Dizziness and giddiness (principal); R51.9 Headache, unspecified; R74.8 Abnormal levels of other serum enzymes; M54.6 Pain in thoracic spine; M79.661 Pain in right lower leg; M79.662 Pain in left lower leg; Z20.822 Contact with and (suspected) exposure to COVID-19
CPT/HCPCS: 0241U-QW; 36415; 80053; 81003; 85025; 85610; 85730; 99284-25; J0131

== ENCOUNTER 2024-01-06 19:20 | Emergency (ER) | payer OTHER ==
[2024-01-06 19:28] VITALS: BP 114/73; PULSE 72; RESP 14; TEMP 99; BMI 31.8
[2024-01-06] MEDS ORDERED: predniSONE 20 MG TABLET (UD) ONE (20:43)
[2024-01-06] MEDS ORDERED: valACYclovir HCL 500 MG TABLET (FP) ONE (20:43)
[2024-01-06] MEDS: valACYclovir HCL 500 MG TABLET (FP) PO ONE (20:45)
[2024-01-06] MEDS: predniSONE 20 MG TABLET (UD) PO ONE (20:45)
[2024-01-06] MEDS ORDERED: IBUPROFEN 600 MG TABLET (FP) PO ONE (21:25)
[2024-01-06] MEDS: IBUPROFEN 600 MG TABLET (FP) PO ONE (21:26)
== END 2024-01-06 21:50 | disposition home or self-care (01) ==
LOC: JER 19:20
DX: G51.0 Bell's palsy (principal)
CPT/HCPCS: 99283-25